=== PATIENT | female | born 1980 | race Hispanic/Latino ===

== ENCOUNTER 2020-06-20 04:54 | Emergency (ER) | payer OTHER ==
[~2020-06-20] VITALS: Ht 165.1 cm; Wt 81.6 kg
--- NOTE | 2020-06-20 11:53 | EKG ---
[facility] [address] [facility] [place], [place] [address] Signed Atrial fibrillation with premature ventricular or aberrantly conducted complexes Incomplete right bundle branch block Nonspecific ST and T wave abnormality Abnormal ECG Confirmed by ESTHER NEW DO ([id number]) on 06/20/2020 11:52:49 AM Electronically Signed By: ESTHER NEW DO 06/20/20 1153 PATIENT NAME: NEIL VALDEZ Electrocardiogram DATE OF : 76 PHYSICIAN: ESTHER NEW DO REPORT #: [id number] REPORT IS CONFIDENTIAL AND NOT TO BE RELEASED WITHOUT AUTHORIZATION
--- NOTE | 2020-06-20 11:53 | EKG ---
[facility] [address] [facility] [place], [place] [address] Signed Atrial fibrillation with premature ventricular or aberrantly conducted complexes Incomplete right bundle branch block Nonspecific ST and T wave abnormality Abnormal ECG No previous ECGs available Confirmed by ESTHER NEW DO ([id number]) on 06/20/2020 11:53:27 AM Electronically Signed By: ESTHER NEW DO 06/20/20 1153 PATIENT NAME: NEIL VALDEZ Electrocardiogram DATE OF : 76 PHYSICIAN: ESTHER NEW DO REPORT #: [id number] REPORT IS CONFIDENTIAL AND NOT TO BE RELEASED WITHOUT AUTHORIZATION
== END 2020-06-20 07:30 | disposition short-term general hospital (02) ==
LOC: ED 04:54
DX: I49.9 Cardiac arrhythmia, unspecified (principal); I48.91 Unspecified atrial fibrillation; I51.7 Cardiomegaly; R11.10 Vomiting, unspecified; I47.2 Ventricular tachycardia; Z20.822 Contact with and (suspected) exposure to COVID-19
CPT/HCPCS: 71045; 80053; 83735; 84484; 84703; 85025; 85379; 93005; 93010; 96374; 99285-25; C9803; J0282; U0003